=== PATIENT | male | born 1945 | race Caucasian/White ===

== ENCOUNTER 2017-01-31 07:10 | Day surgery (SDC) | payer MEDICARE ==
[~2017-01-31] VITALS: Ht 175.3 cm; Wt 86.4 kg
[~2017-01-31 07:10] MED LIST: AMLO5TAB2 PO; CELE1CAP8 PO; CYCL1TAB29 PO; CYMB60CA PO; FLUT5SPR EACH NARE; GABA300C5 PO; HYDR200T3 PO; LEVO25TA4 PO; LISI2.5T3 PO; MELA3CAP PO; OMEP20TA PO; TAMS0.4C4 PO; TEMA30CA PO; VIAG50TA PO; VITA500T49 PO
[2017-01-31 07:30] VITALS: BP 136/89; PULSE 77; RESP 20; TEMP 97.5; O2SAT 97
[2017-01-31] MEDS ORDERED: SODIUM CHLOR 0.9% 1000 ML INJ 1,000 ML IV SCH (07:45)
[2017-01-31 08:02] LABS: AUTOMATED NEUTROPHIL # 3.6 TH/MM3 (1.8-7.7); BASOPHIL # 0.1 TH/MM3 (0-0.2); BASOPHIL % 1.3 % (0.0-2.0); EOSINOPHIL # 0.3 TH/MM3 (0-0.4); EOSINOPHIL % 5.5 % (0.0-4.0); HEMATOCRIT 42.6 % (39.0-51.0); HEMO FLAGS DIFF FINAL; LYMPH % 22.9 % (9.0-44.0); LYMPHOCYTE # 1.3 TH/MM3 (1.0-4.8); MEAN CORPUSCULAR HEMOGLOBIN 31.1 PG (27.0-34.0); MEAN CORPUSCULAR HGB CONC 34.2 % (32.0-36.0); MONO % 7.2 % (0.0-8.0); NEUT % 63.1 % (16.0-70.0); PLATELET COUNT 301 TH/MM3 (150-450); RED BLOOD COUNT 4.68 MIL/MM3 (4.50-5.90); RED CELL DISTRIBUTION WIDTH 12.9 % (11.6-17.2); WHITE BLOOD COUNT 5.7 TH/MM3 (4.0-11.0)
[2017-01-31] MEDS ORDERED: HYDROXYZINE PAMOATE PO (08:05)
[2017-01-31] MEDS ORDERED: DONE5TAB7 PO (08:05)
[2017-01-31 08:10] LABS: APTT (PATIENT) 29.2 SEC (24.3-30.1); INTERNATIONAL NORMALIZED RATIO 0.9 RATIO
[2017-01-31 11:15] VITALS: BP 126/71; PULSE 66; RESP 20; TEMP 97.6; O2SAT 97
--- NOTE | 2017-01-31 11:20 | PD.RAD ---
Post Procedure Progress Note Pre Procedure Diagnosis: (1) Gait disturbance Post Procedure Diagnosis: (1) Gait disturbance Procedure Date: Jan 31, 2017 Supervising Radiologist: Gus Solis JR Proceduralist/Assist: April Ruelas, RT(R), Nafisa Whitehead RT(R)() Anesthesia: Local Plan of Activity Patient to Unit: ROPU Patient Condition: Good See PACS Report for procedural detail/treatment Spinal Procedure Lumbar Puncture L3-L4 Fluid Removal (CCs): 15 Fluid Description: Clear Puncture Time: 11:02 Findings: Clear CSF. Opening pressure: 12 cmH2O. Given the pressure, 15 ml of CSF removed. Samples were not requested. Jr. Will,Gus Seo MD Jan 31, 2017 11:20
[2017-01-31 13:10] VITALS: BP 129/75; PULSE 71; RESP 16; O2SAT 95
--- NOTE | 2017-01-31 13:34 | RADRPT ---
EXAM DATE/TIME: 01/31/2017 10:50 [facility] COMPARISON: No previous studies available for comparison. INDICATIONS : Patient with history of unsteady gait and memory loss in need of lumbar puncture. Order requests 30-4 0 mL CSF removal if elevated pressure. Sampling not requested. MEDICAL HISTORY : HTN, HLD, Chronic low back pain, Prostate cancer, Ventriculomegaly SURGICAL HISTORY : Low back fusion ENCOUNTER: Initial ACUITY: >1 year PAIN SCORE: 0/10 LUMBAR PUNCTURE TIME: 1102 hours FLUORO TIME: 0.9 minutes IMAGE SERIES: 0 ACCESS LEVEL: L3-4 OPENING PRESSURE: 12 cm of water CLOSING PRESSURE: Not requested. cc of CSF was collected and sent to the laboratory for analysis. TECH NOTE; 15CC of CSF was collected but not sent to the lab.FLACO BEAVERS MR#[id number] : 47 Exam date/desc:January 31, 2017LUMBAR PUNCTURE W/OPENING PRESSURES PROCEDURE : 1. Fluoroscopic guided lumbar puncture. 2. Recording of opening pressure. The risks, benefits and alternatives to the procedure were explained and verbal and written consent w as obtained. The site was prepped in sterile fashion. Full sterile technique was used, including ca p, mask, sterile gloves and gown and a large sterile sheet. Hand hygiene and 2% chlorhexidine and/or betadine/alcohol prep was utilized per protocol for cutaneous antisepsis. The skin and subcutaneous tissues were infiltrated with local anesthetic solution. With fluoroscopic guidance the lumbar thecal sac was punctured at the above level described above and the opening pressure was recorded. The above described fluid was removed without difficulty. The op ening pressure is within the normal range and therefore I was uncomfortable removing large volume CSF . 15 mL was removed. The patient tolerated the procedure well and there were no complications. CONCLUSION: Uncomplicated fluoroscopically guided lumbar puncture with normal opening pressure. S juan carlos the pressure was within the normal range 15 mL was removed. Gus Solis Jr., MD on January 31, 2017 at 13:30 Board Certified Radiologist. This report was verified electronically.
[2017-02-02] MEDS ORDERED: HYDR50CA PO (16:40)
== END 2017-01-31 13:35 | disposition home or self-care (01) ==
LOC: HROP 07:10 → HRIP 07:12 → HROP 13:35
PROVIDERS: ATTEND Radiology Body Imaging
DX: R26.9 Unspecified abnormalities of gait and mobility (principal); R41.3 Other amnesia; I10 Essential (primary) hypertension; E78.5 Hyperlipidemia, unspecified; Z85.46 Personal history of malignant neoplasm of prostate; Z88.6 Allergy status to analgesic agent; Z88.5 Allergy status to narcotic agent; Z88.8 Allergy status to other drugs, medicaments and biological substances
CPT/HCPCS: 62270; 77003; 85025; 85610; 85730; J7030